=== PATIENT | female | born 1985 | race Hispanic/Latino ===

== ENCOUNTER 2017-10-05 20:04 | Emergency (ER) | payer BC, MEDICAID ==
[2017-10-05 20:04] VITALS: BMI 25.2
--- NOTE | 2017-10-05 20:29 | ED PDOC ---
Arrival/HPI <Chuck Navarro - Last Filed: 10/05/17 22:16> - General Historian: Patient <Harvey Poon - Last Filed: 10/05/17 23:00> - General Time Seen by Provider: 10/05/17 20:25 - History of Present Illness Narrative History of Present Illness (Text): 10/05/17 20:25 32 y/o female, no significant pmh, nkda, c/o Lt. lower back pain started yesterday with no fall or trauma. Pt. stated that she has chronic back spasm and pain on and off, started again yesterday, no numbness or tingling, no night sweat, no rash, no change in vision, no urinary symptoms, no other medical or psychological complaints. (Harvey Poon) Past Medical History - Provider Review Nursing Documentation Reviewed: Yes - Tetanus Immunization Tetanus Immunization: Unknown - Past Medical History Past Medical History: No Previous - Musculoskeletal/Rheumatological Hx Falls: No - Psychiatric Hx Psychophysiologic Disorder: No Hx Anxiety: No Hx Bipolar Disorder: No Hx Depression: No Hx Emotional Abuse: No Hx Hallucinations: No Hx Panic Disorder: No Hx Paranoia: No Hx Post Traumatic Stress Disorder: No Hx Psychosis: No Hx Physical Abuse: No Hx Schizophrenia: No Hx Sexual Abuse: No Hx Substance Use: No - Surgical History Other/Comment: Tonsillectomy - Anesthesia Hx Anesthesia: Yes Hx Anesthesia Reactions: No Hx Malignant Hyperthermia: No - Suicidal Assessment Feels Threatened In Home Enviroment: No <Harvey Poon - Last Filed: 10/05/17 23:00> Family/Social History - Physician Review Nursing Documentation Reviewed: Yes Family/Social History: Unknown Family HX Smoking Status: Never Smoked Hx Alcohol Use: Yes Hx Substance Use: No Hx Substance Use Treatment: No <Harvey Poon - Last Filed: 10/05/17 23:00> Allergies/Home Meds <Chuck Navarro - Last Filed: 10/05/17 22:16> <Harvey Poon - Last Filed: 10/05/17 23:00> Allergies/Adverse Reactions: Allergies ciprofloxacin Adverse Reaction (Verified 10/05/17 20:33) SHORTNESS OF BREATH clarithromycin [From Biaxin] Adverse Reaction (Verified 10/05/17 20:33) SHORTNESS OF BREATH tree nut Allergy (Uncoded 10/05/17 20:33) ANAPHYLAXIS Home Medications: Home Meds Medication Instructions Recorded Confirmed Fexofenadine/Pseudoephedrine 1 t24 PO DAILY 06/02/13 10/05/17 [Margo-D 24Hour 180 mg-240 mg] Review of Systems - Review of Systems Constitutional: absent: Fatigue, Fevers Eyes: absent: Vision Changes ENT: absent: Hearing Changes Respiratory: absent: SOB, Cough Cardiovascular: absent: Chest Pain Gastrointestinal: absent: Abdominal Pain, Nausea, Vomiting Musculoskeletal: Back Pain, Myalgias. absent: Arthralgias, Neck Pain, Joint Swelling Skin: absent: Rash, Pruritis Neurological: absent: Headache, Dizziness Psychiatric: absent: Anxiety, Depression, Suicidal Ideation <Harvey Poon - Last Filed: 10/05/17 23:00> Physical Exam - Systems Exam Head: Present: Atraumatic, Normocephalic Pupils: Present: PERRL Extroacular Muscles: Present: EOMI Conjunctiva: Present: Normal Mouth: Present: Moist Mucous Membranes Neck: Present: Normal Range of Motion. No: MIDLINE TENDERNESS, Paraspinal Tenderness Respiratory/Chest: Present: Clear to Auscultation, Good Air Exchange. No: Respiratory Distress, Accessory Muscle Use Cardiovascular: Present: Regular Rate and Rhythm, Normal S1, S2. No: Murmurs Abdomen: No: Tenderness, Distention, Peritoneal Signs, Rebound, Guarding Back: Present: Normal Inspection, Paraspinal Tenderness (+lt. paraspinal tenderness and latismus dorsi of left thoracic/lumbar spine, no step off, ). No : CVA Tenderness, Midline Tenderness Upper Extremity: Present: Normal Inspection. No: Cyanosis, Edema Lower Extremity: Present: Normal Inspection. No: Edema Neurological: Present: GCS=15, CN II-XII Intact, Speech Normal, Motor Func Grossly Intact, Gait Normal, Memory Normal Skin: Present: Warm, Dry, Normal Color. No: Rashes Psychiatric: Present: Alert, Oriented x 3, Normal Insight, Normal Concentration <Harvey Poon - Last Filed: 10/05/17 23:00> Vital Signs Temp Pulse Resp BP Pulse Ox 10/05/17 21:53 88 20 98 10/05/17 20:27 98.7 F 101 H 18 125/63 100 Medical Decision Making <Chuck Navarro - Last Filed: 10/05/17 22:16> <Harvey Poon - Last Filed: 10/05/17 23:00> ED Course and Treatment: 10/05/17 20:32 -UA -Toradol IM/valium/percocet -Observe and reassess 10/05/17 22:57 -Pain resolved -UA show +UTI -Discharge home with macrobid, mobic, flexeril, lidoderm, follow up with your own pmd within 2 days, return to the ER for any new or worsening signs or symptoms. (Harvey Poon) - Lab Interpretations Lab Results: Lab Results 10/05/17 20:55: Urine Color Straw, Urine Appearance Clear, Urine pH 6.0, Ur Specific [place] <= 1.005, Urine Protein Negative, Urine Glucose (UA) Negative, Urine Ketones Negative, Urine Blood Large H, Urine Nitrate Negative, Urine Bilirubin Negative, Urine Urobilinogen 0.2, Ur Leukocyte Esterase Trace H, Urine RBC 20 - 25, Urine WBC 2 - 5, Ur Epithelial Cells 4 - 5 - Medication Orders Current Medication Orders: Discontinued Medications Diazepam (Valium) 5 mg PO ONCE ONE PRN Reason: Protocol Stop: 10/05/17 20:33 Last Admin: 10/05/17 21:34 Dose: 5 mg Ketorolac Tromethamine (Toradol) 60 mg IM STAT STA Stop: 10/05/17 20:33 Last Admin: 10/05/17 21:34 Dose: 60 mg MAR Pain Assessment Document 10/05/17 21:34 SS (Rec: 10/05/17 21:34 SS [id number]) Pain Reassessment Is this a pain reassessment? No Presence of Pain Presence of Pain Yes Pain Scale Used Pain Scale Used Numeric Location Pain Location Body Site Back IM Administration Charges Document 10/05/17 21:34 SS (Rec: 10/05/17 21:34 SS [id number]) Charges for Administration # of IM Administrations 1 Oxycodone/Acetaminophen (Percocet 5/325 Mg Tab) 1 tab PO STAT STA Stop: 10/05/17 20:33 Last Admin: 10/05/17 21:33 Dose: 1 tab MAR Pain Assessment Document 10/05/17 21:33 SS (Rec: 10/05/17 21:33 SS [id number]) Pain Reassessment Is this a pain reassessment? No Sleep Is patient sleeping during reassessment? No Presence of Pain Presence of Pain Yes Pain Scale Used Pain Scale Used Numeric - PA / INTAKE MANAGER / Resident Statement / has reviewed & agrees with the documentation as recorded. <Chuck Navarro - Last Filed: 10/05/17 22:16> - PA / INTAKE MANAGER / Resident Statement / has reviewed & agrees with the documentation as recorded. <Harvey Poon - Last Filed: 10/05/17 23:00> Disposition/Present on Arrival <Chuck Navarro - Last Filed: 10/05/17 22:16> - Present on Arrival Any Indicators Present on Arrival: No History of DVT/PE: No History of Uncontrolled Diabetes: No Urinary Catheter: No History of Decub. Ulcer: No History Surgical Site Infection Following: None - Disposition Have Diagnosis and Disposition been Completed?: Yes Disposition Time: 20:32 Patient Plan: Discharge <Harvey Poon - Last Filed: 10/05/17 23:00> - Disposition Diagnosis: UTI (urinary tract infection), Low back pain Disposition: HOME/ ROUTINE Condition: IMPROVED Additional Instructions: -Discharge home with macrobid, mobic, flexeril, lidoderm, follow up with your own pmd within 2 days, return to the ER for any new or worsening signs or symptoms. Prescriptions: Cyclobenzaprine [Cyclobenzaprine HCl] 10 mg PO TID PRN #21 tab PRN Reason: Other Lidocaine 5% [Lidoderm] 1 patch TP DAILY PRN #14 patch PRN Reason: Other Meloxicam [Mobic] 15 mg PO DAILY PRN #14 tab PRN Reason: Other Nitrofurantoin Macrocrystals [Macrobid] 100 mg PO BID #14 cap Referrals: Mahesh Palmer MD [Primary Care Provider] - Follow up with primary Forms: WORK NOTE
[2017-10-05 20:30] VITALS: TEMP 98.7
[2017-10-05] MEDS ORDERED: Oxycodone/Acetaminophen 5/325 mg Tab PO STA (20:32)
[2017-10-05 21:37] LABS: URINE BILIRUBIN NEGATIVE (NEGATIVE); URINE BLOOD LARGE (NEGATIVE); URINE COLOR STRAW (YELLOW); URINE GLUCOSE (UA) NEGATIVE (NEGATIVE); URINE LEUKOCYTE ESTERASE TRACE Leu/uL (NEGATIVE); URINE PROTEIN NEGATIVE mg/dL (<30 mg/dL); URINE UROBILINOGEN 0.2 E.U./dL (<1 E.U./dL)
[2017-10-05 21:38] LABS: URINE APPEARANCE CLEAR (CLEAR)
[2017-10-05 21:39] LABS: URINE RBC 20 - 25 /hpf (0-2)
[2017-10-05 23:07] VITALS: BP 111/73; PULSE 89; RESP 18; O2SAT 96
== END 2017-10-05 23:17 | disposition home or self-care (01) ==
LOC: ED 20:04
DX: N39.0 Urinary tract infection, site not specified (principal); M54.5 Low back pain
CPT/HCPCS: 81001; 87086; 96372; 99283; J1885

== ENCOUNTER 2018-03-23 15:56 | Emergency (ER) | payer MEDICAID ==
[2018-03-23 15:56] VITALS: BMI 25.2
[2018-03-23 16:16] VITALS: RESP 18
--- NOTE | 2018-03-23 16:38 | ED PDOC ---
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 Pt states that the pain is located in her lower back, nonradiating, and feels like a soreness. Patient has taken Motrin 600 mg three times a day for the past 4 days without relief. She has also had urinary urgency, described as a feeling like she has to go frequently but not much comes out, for the past few days. Denies fever, chills, chest pain, sob, abdominal pain, n/v/d, numbness or tingling, hematuria, dysuria, hematochezia, melena, vaginal bleeding. PMD: Pamela Palmer Pain management for back pain: Dr. 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 Sexual history: not sexually active. Has not had sex for "a while." Past Medical History - Infectious Disease Hx of Infectious Diseases: None - Tetanus Immunization Tetanus Immunization: Unknown - Past Medical History Past Medical History: No Previous - Musculoskeletal/Rheumatological Hx Falls: No - Psychiatric Hx Psychophysiologic Disorder: No Hx Anxiety: No Hx Bipolar Disorder: No Hx Depression: No Hx Emotional Abuse: No Hx Hallucinations: No Hx Panic Disorder: No Hx Paranoia: No Hx Post Traumatic Stress Disorder: No Hx Psychosis: No Hx Physical Abuse: No Hx Schizophrenia: No Hx Sexual Abuse: No Hx Substance Use: No - Surgical History Other/Comment: Tonsillectomy - Anesthesia Hx Anesthesia: Yes Hx Anesthesia Reactions: No Hx Malignant Hyperthermia: No - Suicidal Assessment Feels Threatened In Home Enviroment: No Family/Social History Family/Social History: Unknown Family HX Smoking Status: Never Smoked Hx Alcohol Use: Yes Hx Substance Use: No Hx Substance Use Treatment: No Allergies/Home Meds Allergies/Adverse Reactions: Allergies ciprofloxacin Adverse Reaction (Verified 10/05/17 20:33) SHORTNESS OF BREATH clarithromycin [From Biaxin] Adverse Reaction (Verified 10/05/17 20:33) SHORTNESS OF BREATH tree nut Allergy (Uncoded 10/05/17 20:33) ANAPHYLAXIS Home Medications: Home Meds Medication Instructions Recorded Confirmed Fexofenadine/Pseudoephedrine 1 t24 PO DAILY 06/02/13 10/05/17 [Margo-D 24Hour 180 mg-240 mg] Physical Exam Vital Signs Reviewed: Yes Vital Signs Temp Pulse Resp BP Pulse Ox 03/23/18 15:56 97.9 F 125 H 18 108/77 100 Temperature: Afebrile Blood Pressure: Normal Pulse: Tachycardic Respiratory Rate: Normal Appearance: Positive for: Uncomfortable Pain Distress: Mild Mental Status: Positive for: Alert and Oriented X 3 - Systems Exam Head: Present: Atraumatic, Normocephalic Extroacular Muscles: Present: EOMI Conjunctiva: Present: Normal Mouth: Present: Moist Mucous Membranes Neck: Present: Normal Range of Motion Respiratory/Chest: Present: Clear to Auscultation. No: Respiratory Distress, Accessory Muscle Use, Wheezes, Rales, Rhonchi Cardiovascular: Present: Normal S1, S2, Tachycardic Abdomen: Present: Normal Bowel Sounds. No: Tenderness, Distention, Peritoneal Signs, Rebound, Guarding Back: Present: Paraspinal Tenderness (left sided paraspinal tenderness), Other (left sided flank tenderrness). No: CVA Tenderness, Midline Tenderness, Pain with Leg Raise Upper Extremity: Present: Normal Inspection, NORMAL PULSES. No: Cyanosis, Edema Lower Extremity: Present: Normal Inspection, NORMAL PULSES. No: Edema, CALF TENDERNESS Neurological: Present: GCS=15, Speech Normal Skin: Present: Warm, Dry Psychiatric: Present: Alert, Normal Insight, Normal Concentration Medical Decision Making ED Course and Treatment: UA, Urine HCG ordered. Flexeril 10 mg. Tylenol 975 mg. Will reassess. UA shows UTI, with small amount of blood. Will order abdominal/ pelvic ct wi thout contrast to r/o pyelonephritis or nephrolithiasis. Will give bactrim, as pt reports allergy to cipro, ceftin. Disposition/Present on Arrival - Present on Arrival Any Indicators Present on Arrival: No History of DVT/PE: No History of Uncontrolled Diabetes: No Urinary Catheter: No History Surgical Site Infection Following: None - Disposition Have Diagnosis and Disposition been Completed?: Yes Diagnosis: UTI (urinary tract infection) Disposition: HOME/ ROUTINE Disposition Time: 22:00 Condition: GOOD Discharge Instructions (ExitCare): Urinary Tract Infection, Adult (DC) Additional Instructions: Drink plenty of liquids/take meds as prescribed/follow up with your doctor this week Prescriptions: Sulfamethoxazole/Trimethoprim [Bactrim DS 800 mg-160 mg] 1 tab PO BID #14 tab Tramadol HCl [Ultram] 50 mg PO Q6 PRN #16 tab PRN Reason: Pain, Moderate (4-7) Referrals: Mahesh Palmer MD [Primary Care Provider] - Follow up with primary Forms: [facility] ([place]), WORK NOTE
[2018-03-23 17:36] LABS: URINE BILIRUBIN NEGATIVE (NEGATIVE); URINE BLOOD SMALL (NEGATIVE); URINE GLUCOSE (UA) NEGATIVE (NEGATIVE); URINE LEUKOCYTE ESTERASE SMALL Leu/uL (NEGATIVE); URINE PROTEIN NEGATIVE mg/dL (<30 mg/dL); URINE UROBILINOGEN 0.2 E.U./dL (<1 E.U./dL)
[2018-03-23 17:37] LABS: HCG,QUALITATIVE URINE NEGATIVE (NEGATIVE); URINE APPEARANCE CLEAR (CLEAR); URINE COLOR LIGHT YELLOW (YELLOW)
[2018-03-23 17:49] LABS: URINE BACTERIA MOD (NEG); URINE WBC 15 - 20 /hpf (0-6)
[2018-03-23] MEDS ORDERED: cefTRIAXone 1 gm 1 GM/100 ML BAG IVPB SCH (18:00)
[2018-03-23] MEDS: Tmp-Smz 800 mg-160 mg DS Tab PO STA ×2 (18:16→18:40)
[2018-03-23 18:43] LABS: BASO # 0.02 K/mm3 (0.0-2.0); BASO % 0.2 % (0.0-3.0); EOS # 0.2 (0.0-0.7); EOS % 1.3 % (1.5-5.0); GRAN # 7.85 (1.4-6.5); GRAN % 68.7 % (50.0-68.0); HEMOGLOBIN 14.9 g/dL (12.0-16.0); LYMPH # 2.7 (1.2-3.4); LYMPH % 23.6 % (22.0-35.0); MEAN CELL VOLUME 92.5 fl (80.0-105.0); MEAN CORPUSCULAR HEMOGLOBIN 31.1 pg (25.0-35.0); MEAN CORPUSCULAR HGB CONC 33.6 g/dl (31.0-37.0); MEAN PLATELET VOLUME 9.6 fl (7.0-11.0); MONO # 0.7 (0.1-0.6); MONO % 6.2 % (1.0-6.0); RBC 4.79 10^6/uL (3.5-6.1); WHITE BLOOD COUNT 11.4 10^3/ul (4.5-11.0)
[2018-03-23] MEDS ORDERED: DEXTROSE 5% IVPB SCH (18:45)
[2018-03-23] MEDS ORDERED: TRIMETHOPRIM IVPB SCH (18:45)
[2018-03-23] MEDS ORDERED: WATER IVPB SCH (18:45)
[2018-03-23] MEDS ORDERED: SULFAMETHOXAZOLE IVPB SCH (18:45)
[2018-03-23 18:51] LABS: ALB/GLOB RATIO 1.7 (1.1-1.8); ALBUMIN 4.9 g/dL (3.0-4.8); ALT/SGPT 36 U/L (7-56); AST/SGOT 28 U/L (14-36); BLOOD UREA NITROGEN 13 mg/dL (7-21); CALCIUM 9.3 mg/dL (8.4-10.5); GFR NON-AFRICAN AMERICAN > 60; LIPASE 91 U/L (23-300)
[2018-03-23 18:53] LABS: INR 1.08; PARTIAL THROMBOPLASTIN TIME 33.8 Seconds (25.1-36.5); PROTHROMBIN TIME 12.3 SECONDS (9.4-12.5)
--- NOTE | 2018-03-23 19:44 | ED PDOC ---
Physical Exam Vital Signs Reviewed: Yes Vital Signs Temp Pulse Resp BP Pulse Ox 03/23/18 15:56 97.9 F 125 H 18 108/77 100 Temperature: Afebrile Blood Pressure: Normal Pulse: Tachycardic Respiratory Rate: Normal Appearance: Positive for: Well-Appearing, Non-Toxic, Comfortable Pain Distress: None Mental Status: Positive for: Alert and Oriented X 3 - Systems Exam Head: Present: Atraumatic, Normocephalic Pupils: Present: PERRL Extroacular Muscles: Present: EOMI Conjunctiva: Present: Normal Mouth: Present: Moist Mucous Membranes Neck: Present: Normal Range of Motion Respiratory/Chest: Present: Clear to Auscultation, Good Air Exchange. No: Respiratory Distress, Accessory Muscle Use Cardiovascular: Present: Regular Rate and Rhythm, Normal S1, S2. No: Murmurs Abdomen: No: Tenderness, Distention, Peritoneal Signs Back: Present: Paraspinal Tenderness (left sided) Upper Extremity: Present: Normal Inspection. No: Cyanosis, Edema Lower Extremity: Present: Normal Inspection. No: Edema Neurological: Present: GCS=15, CN II-XII Intact, Speech Normal Skin: Present: Warm, Dry, Normal Color. No: Rashes Psychiatric: Present: Alert, Oriented x 3, Normal Insight, Normal Concentration Medical Decision Making ED Course and Treatment: 03/23/18 19:10 Case endorsed to me by Dr. Aquino for pending CT of Abdomen, reassessment and final disposition. Patient presented to the Emergency department earlier today complaining of lower back discomfort. Patient is currently resting in bed in no acute distress. Patient presents no new medical complaints. 03/23/18 20:52 CT Abdomen and Pelvis reviewed, shows:L LUNG BASES: The lung bases appear clear. No pleural effusions are seen. LIVER: Unremarkable. GALLBLADDER AND BILE DUCTS: The gallbladder appears within normal limits. No radioopaque gallstones are seen. No biliary ductal dilatation is evident. PANCREAS: Unremarkable. SPLEEN: Unremarkable. ADRENAL GLANDS: Unremarkable. KIDNEYS, URETERS, AND BLADDER: The kidneys appear within normal limits. There is no hydronephrosis or hydroureter. No urinary calculi are seen. STOMACH AND BOWEL: Unremarkable appearance of the stomach and bowel. No evidence of bowel obstructi on. No evidence suggesting enteritis or colitis. APPENDIX: No evidence of acute appendicitis on CT examination. PERITONEUM: No free fluid. No free air. LYMPH NODES: No lymphadenopathy is evident. REPRODUCTIVE: The left ovary appears enlarged. The right ovary and uterus are WNL. VASCULATURE: No evidence of abdominal aortic aneurysm. BONES: No aggressive appearing osseous lesion. No acute osseous pathology evident. IMPRESSION: No acute intra-abdominal or pelvic abnormality. The left ovary appears enlarged. Consider follow up with pelvic US. Electronically signed on Mar 23, 2018 8:33:02 PM EDT by: Mike Cardona M.D., AHMET Certified By ABR & CBC[employer] Fellowship Trained MRI and CT Specialist 03/23/18 22:10 Uterus Measures 7.39 x 2.76 x 3.35 cm. Normal in size and appearance. No fibroid or other mass lesion seen. Endometrium Measures 13.2 mm in diameter. Unremarkable. Cervix No cervical abnormality identified. Measures 3.23 cm. Right ovary Measures 2.7 x 1.72 x 2.75 cm. No solid mass. Normal flow. Left ovary Measures 2.64 x 2.16 x 2.38 cm. No solid mass. Normal flow. Free fluid No significant free fluid noted. Other Findings None. Impression Unremarkable pelvic ultrasound. Electronically signed on Mar 23, 2018 9:41:35 PM EDT by: Mike Cardona M.D., AHMET Certified By ABR & CBC[employer] Fellowship Trained MRI and CT Specialist 03/23/18 22:13 On re-evaluation, patient is awake, alert, and in no acute distress. Denies any complaints at this time. Pt tolerating PO without difficulty. Discussed results and plan with pt, who verbalizes understanding. Pt stable for d/c. - Lab Interpretations Lab Results: 03/23/18 18:28 03/23/18 18:28 Lab Results 03/23/18 18:28: Sodium 142, Potassium 3.7, Chloride 105, Carbon Dioxide 25, Anion Gap 16, BUN 13, Creatinine 0.7, Est GFR ( Amer) > 60, Est GFR (Non- Af Amer) > 60, Random Glucose 88, Calcium 9.3, Total Bilirubin 0.6, AST 28, ALT 36, Alkaline Phosphatase 73, Total Protein 7.8, Albumin 4.9 H, Globulin 2.9, Albumin/Globulin Ratio 1.7, Lipase 91 03/23/18 18:28: PT 12.3, INR 1.08, APTT 33.8 03/23/18 18:28: WBC 11.4 H D, RBC 4.79, Hgb 14.9, Hct 44.3, MCV 92.5, MCH 31.1, MCHC 33.6, RDW 12.0, Plt Count 285, MPV 9.6, Gran % 68.7 H, Lymph % (Auto) 23.6, [place] % (Auto) 6.2 H, Eos % (Auto) 1.3 L, Baso % (Auto) 0.2, Gran # 7.85 H, Lymph # (Auto) 2.7, [place] # (Auto) 0.7 H, Eos # (Auto) 0.2, Baso # (Auto) 0.02 03/23/18 17:26: Urine Color Light yellow, Urine Appearance Clear, Urine pH 6.0, Ur Specific [place] <= 1.005, Urine Protein Negative, Urine Glucose (UA) Ne gative, Urine Ketones Negative, Urine Blood Small H, Urine Nitrate Negative, Urine Bilirubin Negative, Urine Urobilinogen 0.2, Ur Leukocyte Esterase Small H, Urine RBC 10 - 15, Urine WBC 15 - 20, Ur Epithelial Cells 3 - 4, Urine Bacteria Mod, Urine HCG, Qual Negative I have reviewed the lab results: Yes - RAD Interpretation Radiology Orders: 03/23/18 19:12 ABD & PELVIS W/O PO OR IV CONT [CT] Stat Viner Operator: Radiologist - Medication Orders Current Medication Orders: Trimethoprim/Sulfamethoxazole (280 mg/ Dextrose) 500 mls @ 250 mls/hr IVPB Q12H [facility] Last Admin: 03/23/18 19:26 Dose: 250 mls/hr eMAR Start Stop Document 03/23/18 19:26 EDILSON (Rec: 03/23/18 19:28 EDILSON [id number]) Intravenous Solution Start Date 03/23/18 Start Time 19:28 End Date 03/23/18 End time 21:28 Total Infusion Time 120 Discontinued Medications Cyclobenzaprine HCl (Flexeril) 10 mg PO STAT STA Stop: 03/23/18 17:02 Last Admin: 03/23/18 18:15 Dose: 10 mg Ketorolac Tromethamine (Toradol) 30 mg IVP STAT STA Stop: 03/23/18 17:55 Last Admin: 03/23/18 18:16 Dose: 30 mg MAR Pain Assessment Document 03/23/18 18:16 EDILSON (Rec: 03/23/18 18:16 NV [id number]) Pain Reassessment Is this a pain reassessment? Yes Sleep Is patient sleeping during reassessment? No Presence of Pain Presence of Pain Yes Pain Scale Used Protocol: PSCALES Pain Scale Used Numeric Location Left, Right or Bilateral Left Upper or Lower Lower Pain Location Body Site Back Description Pain Behavior Guarding IVP Administration Document 03/23/18 18:16 LA (Rec: 03/23/18 18:16 NV [id number]) Charges for Administration # of IVP Administrations 1 Trimethoprim/Sulfamethoxazole (Bactrim Ds Tab) 1 tab PO STAT STA; Protocol Stop: 03/23/18 17:56 Last Admin: 03/23/18 18:40 Dose: Not Given Non-Admin Reason: as per - Scribe Statement The provider has reviewed the documentation as recorded by the Scribe Marylin Powers. All medical record entries made by the Scribe were at my direction and personally dictated by me. I have reviewed the chart and agree that the record accurately reflects my personal performance of the history, physical exam, medical decision making, and the department course for this patient. I have also personally directed, reviewed, and agree with the discharge instructions and disposition. Disposition/Present on Arrival - Present on Arrival Any Indicators Present on Arrival: No History of DVT/PE: No History of Uncontrolled Diabetes: No Urinary Catheter: No History of Decub. Ulcer: No History Surgical Site Infection Following: None - Disposition Have Diagnosis and Disposition been Completed?: Yes Diagnosis: UTI (urinary tract infection) Disposition: HOME/ ROUTINE Disposition Time: 22:13 Patient Plan: Discharge Patient Problems: Current Active Problems Problem Status Onset UTI (urinary tract infection) Acute Condition: GOOD Discharge Instructions (ExitCare): Urinary Tract Infection, Adult (DC) Additional Instructions: Drink plenty of liquids/take meds as prescribed/follow up with your doctor this week Prescriptions: Sulfamethoxazole/Trimethoprim [Bactrim DS 800 mg-160 mg] 1 tab PO BID #14 tab Tramadol HCl [Ultram] 50 mg PO Q6 PRN #16 tab PRN Reason: Pain, Moderate (4-7) Referrals: Mahesh Palmer MD [Primary Care Provider] - Follow up with primary Forms: [employer] (Slovak), WORK NOTE
[2018-03-23] MEDS ORDERED: Morphine 2 mg/ml ISec IVP STA (21:27)
[2018-03-23 23:27] VITALS: PULSE 98
[2018-03-23 23:28] VITALS: BP 112/78; TEMP 98; O2SAT 100
--- NOTE | 2018-03-24 11:58 | US ---
Date of service: 03/23/2018 HISTORY: pain COMPARISON: Abdomen and Pelvis CT without contrast dated 03/23/2018. TECHNIQUE: Transabdominal pelvic ultrasound was performed with longitudinal and transverse images submitted for interpretation. FINDINGS: UTERUS: Measures 7.4 x 2.8 x 3.4 cm. Normal in size and appearance, slightly retroverted and retroflexed. No fibroid or other mass lesion seen. ENDOMETRIUM: Measures 13.2 mm in diameter. No fluid collection is seen within the intracavity with endometrium free of discrete cyst or solid mass. CERVIX: No cervical abnormality identified. RIGHT OVARY: Measures 2.7 x 1.7 x 2.8 cm. No solid mass. Normal flow. LEFT OVARY: Measures 2.6 x 2.2 x 2.4 cm. No solid mass. Normal flow. FREE FLUID: No significant free fluid noted. OTHER FINDINGS: None. IMPRESSION: Unremarkable pelvic ultrasound. Concordant preliminary report from [facility], 03/23/2018.
--- NOTE | 2018-03-24 12:28 | CT ---
Date of service: 03/23/2018 PROCEDURE: CT Abdomen and Pelvis without intravenous contrast HISTORY: left flank pain COMPARISON: 11/07/2014 TECHNIQUE: Technique. Contrast dose: Radiation dose: Total exam DLP = 284.45 mGy-cm. This CT exam was performed using one or more of the following dose reduction techniques: Automated exposure control, adjustment of the mA and/or kV according to patient size, and/or use of iterative reconstruction technique. FINDINGS: LOWER THORAX: Unremarkable. LIVER: Unremarkable. No gross lesion or ductal dilatation. GALLBLADDER AND BILE DUCTS: Unremarkable. PANCREAS: Unremarkable. No gross lesion or ductal dilatation. SPLEEN: Unremarkable. ADRENALS: Unremarkable. No mass. KIDNEYS AND URETERS: Unremarkable. No hydronephrosis. No solid mass. VASCULATURE: Unremarkable. No aortic aneurysm. No aortic atherosclerotic calcification or mural plaque present. BOWEL: Unremarkable. No obstruction. No gross mural thickening. APPENDIX: Unremarkable. Normal appendix. PERITONEUM: Unremarkable. No free fluid. No free air. LYMPH NODES: Unremarkable. No enlarged lymph nodes. BLADDER: Unremarkable. REPRODUCTIVE: Enlarged left ovary. BONES: No acute fracture. OTHER FINDINGS: None. IMPRESSION: Enlarged left ovary. Correlate with pelvic ultrasound.
== END 2018-03-23 23:30 | disposition home or self-care (01) ==
LOC: ED 15:56
DX: N39.0 Urinary tract infection, site not specified (principal)
CPT/HCPCS: 74176; 76856; 80053; 81001; 83690; 84703; 85025; 85610; 85730; 87086; 96365; 96366; 96375; 99283; J1885; J2270; J7060